=== PATIENT | male | born 1955 | race African-American/Black ===

== ENCOUNTER 2021-02-25 05:08 | Day surgery (SDC) | payer BC, OTHER ==
[2021-02-18 11:20] VITALS: BMI 24.4
[2021-02-25] MEDS ORDERED: ROPIVACAINE HCL 0.5% 30ML VIAL ONE (08:23)
[2021-02-25] MEDS ORDERED: MIDAZOLAM HCL 2 MG/2 ML SINGLE DOSE VIAL ONE ×2 (08:24)
[2021-02-25] MEDS ORDERED: TRANEXAMIC ACID 1000 MG/10 ML VIAL ONE (09:06)
[2021-02-25] MEDS ORDERED: ceFAZolin SODIUM 1 GM VIAL ONE (09:06)
[2021-02-25] MEDS ORDERED: ceFAZolin 2 GRAM PREMIX BAG IVPB ONE (09:08)
[2021-02-25] MEDS ORDERED: ONDANSETRON 4 MG/2 ML VIAL IVPUSH PRN (09:08)
[2021-02-25] MEDS ORDERED: oxyCODONE HCL 5 MG TABLET PO PRN ×2 (09:08)
[2021-02-25] MEDS ORDERED: LACTATED RINGERS SOLUTION 1,000 ML IV SCH (09:15)
[2021-02-25] MEDS ORDERED: PROPOFOL 20 ML ONE (09:38)
[2021-02-25] MEDS ORDERED: BENZOIN/ALOE VERA/STORAX/TOLU 58 ML BOTTLE ONE (10:15)
[2021-02-25] MEDS ORDERED: ONDANSETRON 4 MG/2 ML VIAL ONE (10:59)
[2021-02-25 13:23] VITALS: BP 136/72; PULSE 81
[2021-02-25 13:31] VITALS: TEMP 97.2
[2021-02-25] MEDS ORDERED: metFORMIN HCL 500 MG TABLET (FP) PO SCH (16:30)
[2021-02-25] MEDS ORDERED: ATORVASTATIN CA 20 MG TABLET (FP) PO SCH (22:00)
[2021-02-26] MEDS ORDERED: HYDROCHLOROTHIAZIDE 12.5 MG CAPSULE (FP) PO SCH (10:00)
[2021-02-26] MEDS ORDERED: ASPIRIN COATED 81 MG TABLET.EC PO SCH (10:00)
[2021-02-26] MEDS ORDERED: ENALAPRIL MALEATE 5 MG TABLET PO SCH (10:00)
== END 2021-02-25 13:15 | disposition home or self-care (01) ==
LOC: JASU-SURG 05:08
PROVIDERS: ATTEND Orthopaedic Surgery Orthopaedic Surgery of the Spine
PROC: 0PBB0ZZ Excision of Left Clavicle, Open Approach (ICD-10-PCS; 2021-02-25)
PROC: 0MN20ZZ Release Left Shoulder Bursa and Ligament, Open Approach (ICD-10-PCS; principal; 2021-02-25 09:36)
DX: M75.42 Impingement syndrome of left shoulder (principal); M75.102 Unspecified rotator cuff tear or rupture of left shoulder, not specified as traumatic; E11.9 Type 2 diabetes mellitus without complications; I10 Essential (primary) hypertension
CPT/HCPCS: 82962; 94760